=== PATIENT | female | born 1970 | race Caucasian/White ===

== ENCOUNTER 2023-06-24 06:00 | Day surgery (SDC) | payer OTHER ==
[2023-06-21 10:44] LABS: MEAN CELL VOLUME 87.1 fL (80.00-100.00); MEAN CORPUSCULAR HEMOGLOBIN 30.6 pg (27.00-32.0); MEAN CORPUSCULAR HGB CONC 35.1 g/dl (32.0-36.0); PLATELET COUNT 286 K/uL (150-450); RED BLOOD COUNT 4.25 M/uL (4.00-6.00); RED CELL DISTRIBUTION WIDTH 13.1 % (11.5-14.5)
[~2023-06-24] VITALS: Ht 157.5 cm; Wt 68.0 kg
[~2023-06-24 06:00] MED LIST: CRESTOR5 MG; MAXALT10 MG PO; METFORMIN HCL500 M3 PO; XANAX XR0.5 MG PO; ZYRTEC10 M3 PO
== END 2023-06-24 17:00 | disposition home or self-care (01) ==
LOC: CIR.AMB 06:00
PROVIDERS: ATTEND Obstetrics & Gynecology Gynecologic Oncology
DX: N85.8 Other specified noninflammatory disorders of uterus (principal); Z20.822 Contact with and (suspected) exposure to COVID-19; E78.5 Hyperlipidemia, unspecified